=== PATIENT | male | born 1980 | race Caucasian/White ===

== ENCOUNTER 2017-06-29 17:00 | Emergency (ER) | payer OTHER ==
[~2017-06-29] VITALS: Ht 170.2 cm; Wt 79.9 kg
[~2017-06-29 17:00] MED LIST: AMOXICILLIN875 MG PO; FLEXERIL10 MG PO; MOTRIN600 MG PO
[2017-06-29 20:46] VITALS: BP 137/84
== END 2017-06-29 20:48 | disposition home or self-care (01) ==
LOC: EME 17:00
DX: S83.92XA Sprain of unspecified site of left knee, initial encounter (principal); V99.XXXD Unspecified transport accident, subsequent encounter
CPT/HCPCS: 73564; 99281; 99285